=== PATIENT | male | born 1955 | race Caucasian/White ===

== ENCOUNTER 2018-11-27 12:04 | Emergency (ER) | payer OTHER ==
[~2018-11-27] VITALS: Ht 190.5 cm; Wt 122.5 kg
--- NOTE | 2018-11-27 12:11 | NUR ---
PT BIB [facility] FROM HOME CO SOB FOR 3 DAYS. PT SAT ON RA 92%. PT DENIES CP AT THIS POINT. PT ADMITS TO BE HOMELESS BUT PT SAYS THAT [facility] ARRANGED A [facility] FOR PT, BUT PT IS WAITNING FOR HIS TURN. PT WITH POOR HYGIENE, AND SMALL ROUND ITCHY RASHES ALL OVER THE PT BODY. PT IMMEDIATELY PLACE ON MONITOR, O2 AND EKG IN PROCESS. AT BEDSIDE.
[2018-11-27] MEDS ORDERED: IPRATROPIUM BROMIDE 0.5 MG/2.5 ML NEBU NEB ONE (12:15)
[2018-11-27] MEDS ORDERED: IV NORMAL SALINE 500 ML BAG IV ONE (12:15)
[2018-11-27] MEDS ORDERED: ALBUTEROL SULFATE 2.5 MG/3 ML NEBU NEB ONE (12:15)
[2018-11-27] MEDS ORDERED: IPRATROPIUM BROMIDE 0.5 MG/2.5 ML NEBU ONE (12:23)
[2018-11-27] MEDS ORDERED: ALBUTEROL SULFATE 2.5 MG/3 ML NEBU ONE (12:23)
[2018-11-27 12:38] LABS: BASOPHILS # (AUTO) 0.1 K/uL (0.0-8.0); BASOPHILS % (AUTO) 0.9 % (0.0-2.0); EOSINOPHILS # (AUTO) 0.6 K/uL (0.0-0.7); EOSINOPHILS % (AUTO) 5.4 % (0.0-7.0); HEMATOCRIT 38.7 % (36.7-47.1); HEMOGLOBIN 12.9 g/dL (12.5-16.3); LYMPHOCYTES # (AUTO) 1.1 K/uL (20.0-40.0); LYMPHOCYTES % (AUTO) 10.7 % (20.5-51.5); MEAN CORPUSCULAR HEMOGLOBIN 33.6 uug (23.8-33.4); MEAN CORPUSCULAR HGB CONC 33 g/dL (32.5-36.3); MEAN CORPUSCULAR VOLUME 100.9 fL (73.0-96.2); MONOCYTES % (AUTO) 9.6 % (0.0-11.0); NEUTROPHILS # (AUTO) 7.6 K/uL (1.8-8.9); NEUTROPHILS % (AUTO) 73.4 % (38.5-71.5); PLATELET COUNT (AUTO) 260 K/uL (152-348); RED BLOOD CELL COUNT(AUTO) 3.84 MIL/uL (4.06-5.63); WHITE BLOOD COUNT (AUTO) 10.4 K/uL (3.6-10.2)
[2018-11-27] MEDS ORDERED: ASPI81TA31 PO (12:52)
[2018-11-27] MEDS ORDERED: OMEP20TA5 PO (12:52)
[2018-11-27] MEDS ORDERED: PERM60CR4 TP (12:52)
[2018-11-27] MEDS ORDERED: ATOR80TA PO (12:52)
[2018-11-27] MEDS ORDERED: BENA20TA9 PO (12:52)
[2018-11-27] MEDS ORDERED: CHOL100045 PO (12:52)
[2018-11-27] MEDS ORDERED: ISOS30TA9 PO (12:52)
[2018-11-27] MEDS ORDERED: CYAN100T3 PO (12:52)
[2018-11-27] MEDS ORDERED: HYDR28CR67 TP (12:52)
[2018-11-27] MEDS ORDERED: CARV25TA2 PO (12:52)
[2018-11-27 12:56] LABS: CREATININE 1.6 mg/dL (0.6-1.3)
[2018-11-27] MEDS ORDERED: NITR0.4T SL (12:56)
[2018-11-27 13:02] LABS: BILIRUBIN,DIRECT 0.3 mg/dL (0.0-0.2); BILIRUBIN,TOTAL 0.9 mg/dL (0.2-1.0); TOTAL PROTEIN, SERUM 7.5 g/dL (6.4-8.2)
[2018-11-27] MEDS ORDERED: FUROSEMIDE 40 MG/4 ML VIAL ONE (13:10)
[2018-11-27] MEDS ORDERED: FUROSEMIDE 20 MG/2 ML VIAL IV ONE (13:15)
--- NOTE | 2018-11-27 13:28 | NUR ---
PT RESTING, PT DENIES ANY CP, DIZZINESS,N/V OR ANY OTHER STRESS AT THIS POINT.
[2018-11-27] MEDS ORDERED: NOREPINEPHRINE BITARTRATE 8 MG in IV DEXTROSE 5% 500 ML IV ONE (13:30)
--- NOTE | 2018-11-27 14:24 | NUR ---
ER TALKING TO COMMUNITY ENGAGEMENT LEADER AT [facility] OVER THE PHONE.
--- NOTE | 2018-11-27 14:40 | NUR ---
CALLED UP [facility] TRANSFER SERVICE AND SPOKE TO ANKUSH DACOSTA. DR DIXON SPOKE TO THE ER MD.
--- NOTE | 2018-11-27 14:50 | NUR ---
called [facility] for acls transfer to [facility] emergency room. eta 90 minutes, trip number [id number]
--- NOTE | 2018-11-27 14:50 | NUR ---
dr. garcía at [facility] accepted the pt.
--- NOTE | 2018-11-27 15:19 | NUR ---
PT RESTING, AWAKE, AXOX4. PT DOMINGO GUERRERO CP OR SOB AT THIS TIME.
[2018-11-27] MEDS ORDERED: ASPIRIN 325 MG TABLET PO ONE (17:00)
--- NOTE | 2018-11-27 17:24 | NUR ---
GOLDEN AT [facility] TO TRANSFER THE PT TO [facility]. PT AXOX4, PT DENIES ANY CP OR SOB AT THIS TIME.
--- NOTE | 2018-11-27 17:34 | NUR ---
REPORT GIVEN TO ANKUSH MONTEIRO [facility].
== END 2018-11-27 17:35 | disposition other institution (70) ==
LOC: ER 12:04
DX: I21.4 Non-ST elevation (NSTEMI) myocardial infarction (principal); I25.10 Atherosclerotic heart disease of native coronary artery without angina pectoris; I10 Essential (primary) hypertension; E78.5 Hyperlipidemia, unspecified; Z79.82 Long term (current) use of aspirin; Z79.899 Other long term (current) drug therapy
CPT/HCPCS: 36415; 71045; 80048; 80076; 83605 ×2; 83880; 84484 ×2; 85025; 85730; 87040; 93005; 94640; 96374; 99285; J1940; 70030-TC; A4663; J3590; J7030